=== PATIENT | male | born 1965 | race Two or more races ===

== ENCOUNTER 2020-06-02 16:03 | Outpatient (CLI) | payer OTHER | END 2020-06-02 16:07 | disposition home or self-care (01) | LOC: LAB 16:03 | PROVIDERS: ATTEND Surgery | DX: R97.20 Elevated prostate specific antigen [PSA] (principal) ==

== ENCOUNTER → 2020-07-17 | Outpatient (CLI) | payer OTHER | END | disposition home or self-care (01) | LOC: SONOGRAMA 07:24 | PROVIDERS: ATTEND Surgery | DX: R97.20 Elevated prostate specific antigen [PSA] (principal); D29.1 Benign neoplasm of prostate ==